=== PATIENT | female | born 1960 ===

== ENCOUNTER 2022-01-18 10:45 | Inpatient (IN) | payer OTHER ==
[~2022-01-18] VITALS: Ht 160 cm; Wt 93.0 kg
[2022-01-18] MEDS ORDERED: COZAAR100 MG PO (12:40)
[2022-01-18] MEDS ORDERED: NORVASC10 MG PO (12:40)
[2022-01-18] MEDS ORDERED: LANTUS (12:41)
[2022-01-18] MEDS ORDERED: JANUMET XR 50-1 EAC1 PO (12:41)
[2022-01-21] MEDS ORDERED: TRAZODONE HCL50 MG (08:02)
[2022-01-21] MEDS ORDERED: ZANAFLEX2 MG (08:02)
[2022-01-21] MEDS ORDERED: DULOXETINE HCL60 MG (08:02)
[2022-01-21] MEDS ORDERED: DICLOFENAC SODI75 MG (08:02)
[2022-01-21] MEDS ORDERED: GABAPENTIN300 M2 (08:02)
[2022-01-21] MEDS ORDERED: ALPRAZOLAM1 MG (08:02)
[2022-01-21] MEDS ORDERED: LANTUS SOL100 UNIT/1 (08:03)
[2022-01-21] MEDS ORDERED: METFORMIN HCL500 M4 (08:36)
== END 2022-01-21 12:40 | disposition home or self-care (01) | DRG 743 ==
LOC: O/R 01-20 10:04 → SURG 01-20 10:04 → SURH 01-20 10:45 → SURG 01-20 23:27
PROVIDERS: ADMIT Obstetrics & Gynecology Gynecologic Oncology; ATTEND Obstetrics & Gynecology Gynecologic Oncology
PROC: 0DNU4ZZ Release Omentum, Percutaneous Endoscopic Approach (ICD-10-PCS; 2022-01-20)
PROC: 0UT74ZZ Resection of Bilateral Fallopian Tubes, Percutaneous Endoscopic Approach (ICD-10-PCS; 2022-01-20)
PROC: 0UT04ZZ Resection of Right Ovary, Percutaneous Endoscopic Approach (ICD-10-PCS; 2022-01-20)
PROC: 0UT94ZZ Resection of Uterus, Percutaneous Endoscopic Approach (ICD-10-PCS; principal; 2022-01-20 20:30)
DX: N84.0 Polyp of corpus uteri (principal); N83.291 Other ovarian cyst, right side; N83.292 Other ovarian cyst, left side; Z20.822 Contact with and (suspected) exposure to COVID-19; K66.0 Peritoneal adhesions (postprocedural) (postinfection)